=== PATIENT | female | born 2000 | race African-American/Black ===

== ENCOUNTER 2022-07-05 12:38 | Emergency (ER) | payer MEDICAID, OTHER ==
[~2022-07-05] VITALS: Ht 152.4 cm; Wt 68.0 kg
[2022-07-05] MEDS ORDERED: MAGNESIUM/ALUMINUM HYDROXIDE/SIMETHICONE 30ML UDC PO STA (13:12)
[2022-07-05] MEDS ORDERED: ONDANSETRON 4MG ODT PO STA (13:12)
[2022-07-05] MEDS ORDERED: VISCOUS LIDOCAINE 2% 15 ML UDC PO STA (13:12)
[2022-07-05] MEDS ORDERED: FAMOTIDINE 20MG TABLET PO ONE (13:15)
[2022-07-05] MEDS ORDERED: ACETAMINOPHEN 325MG TABLET PO ONE (13:15)
[2022-07-05] MEDS ORDERED: DIPHENHYDRAMINE 50MG/ML VIAL IV ONE (13:45)
[2022-07-05] MEDS ORDERED: ONDANSETRON HCL 4MG/2ML INJ IV ONE (13:45)
[2022-07-05] MEDS ORDERED: HALOPERIDOL LACTATE 5MG/ML VIAL IM ONE (13:45)
[2022-07-05] MEDS ORDERED: FAMOTIDINE 20MG/2ML VIAL IV ONE (13:45)
[2022-07-05 14:50] LABS: BASOPHILS % 1.2 % (0.0-2.0); HEMATOCRIT. 41.5 % (36.0-48.0); HEMOGLOBIN. 13.8 g/dL (12.0-16.0); LYMPHOCYTES % 25.9 % (20.0-50.0); MEAN CORPUSCULAR HEMOGLOBIN 29.7 pg (28.0-32.0); MEAN CORPUSCULAR VOLUME 89.2 fL (81.0-99.0); MEAN PLATELET VOLUME 9.6 fl (7.4-10.4); NEUTROPHILS % 62.9 % (40.0-76.0); PLATELET 255 x1000/uL (130-400); RED BLOOD CELL COUNT 4.66 mill/uL (4.2-5.4); RED CELL DISTRIBUTION WIDTH 13.5 % (11.6-14.6)
[2022-07-05 14:58] LABS: CHLORIDE 105 mEq/L (98-107)
[2022-07-05] MEDS ORDERED: POTASSIUM CHLORIDE 20MEQ/PACKET PO ONE (15:30)
[2022-07-05] MEDS ORDERED: MAGNESIUM OXIDE 400MG TABLET PO SCH (15:30)
[2022-07-05 16:29] LABS: HCG SCREEN NEGATIVE
[2022-07-05] MEDS ORDERED: MAG-55 MT (17:47)
[2022-07-05] MEDS ORDERED: FAMO40TA70 MT (17:47)
[2022-07-05 18:23] VITALS: BP 121/81
== END 2022-07-05 18:24 | disposition home or self-care (01) ==
LOC: ER 12:38
DX: K29.20 Alcoholic gastritis without bleeding (principal); F10.10 Alcohol abuse, uncomplicated; Y90.9 Presence of alcohol in blood, level not specified
CPT/HCPCS: 36415; 80053; 83690; 84703; 85025; 96372; 96374; 96375; 99284; J1200; J1630; J2405; J3490

== ENCOUNTER 2022-09-26 15:15 | Emergency (ER) | payer MEDICAID ==
[~2022-09-26] VITALS: Ht 162.6 cm; Wt 50.0 kg
[~2022-09-26 15:15] MED LIST: FAMO40TA70 MT; MAG-55 MT
[2022-09-26] MEDS ORDERED: BACITRACIN ZINC OINT UDPKT TOP ONE (16:00)
[2022-09-26] MEDS ORDERED: LIDOCAINE HCL/PF 1% 10 MG/ML 5ML VIAL INFIL ONE (16:00)
[2022-09-26] MEDS ORDERED: ACETAMINOPHEN 325MG TABLET PO ONE (16:00)
[2022-09-26] MEDS ORDERED: BO1 TP (17:35)
[2022-09-26] MEDS ORDERED: IBUPROFEN 400MG TABLET PO ONE (18:15)
[2022-09-26 18:16] VITALS: BP 129/89
== END 2022-09-26 18:46 | disposition home or self-care (01) ==
LOC: ER 15:18
DX: S61.511A Laceration without foreign body of right wrist, initial encounter (principal); Z96.659 Presence of unspecified artificial knee joint; W26.0XXA Contact with knife, initial encounter; Y93.89 Activity, other specified; Y92.010 Kitchen of single-family (private) house as the place of occurrence of the external cause
CPT/HCPCS: 12002; 99284; J3490

== ENCOUNTER 2022-12-07 23:43 | Emergency (ER) | payer MEDICAID, OTHER ==
[~2022-12-07] VITALS: Ht 162.6 cm; Wt 54.0 kg
[~2022-12-07 23:43] MED LIST changes: +BO1 TP
[2022-12-07] MEDS ORDERED: MAGNESIUM/ALUMINUM HYDROXIDE/SIMETHICONE 30ML UDC PO STA (23:49)
[2022-12-07] MEDS ORDERED: ONDANSETRON HCL 4MG/2ML INJ IV STA (23:49)
[2022-12-07] MEDS ORDERED: VISCOUS LIDOCAINE 2% 15 ML UDC PO STA (23:49)
[2022-12-08] MEDS ORDERED: SODIUM CHLORIDE 0.9% 1,000 ML IV ONE
[2022-12-08 00:33] LABS: HEMATOCRIT. 41.3 % (36.0-48.0); HEMOGLOBIN. 13.9 g/dL (12.0-16.0); MEAN CORPUSCULAR HEMOGLOBIN 29.4 pg (28.0-32.0); MEAN CORPUSCULAR VOLUME 87.4 fL (81.0-99.0); MEAN PLATELET VOLUME 8.9 fl (7.4-10.4); PLATELET 214 x1000/uL (130-400); RED BLOOD CELL COUNT 4.73 mill/uL (4.2-5.4); RED CELL DISTRIBUTION WIDTH 13.2 % (11.6-14.6)
[2022-12-08 00:40] LABS: CHLORIDE 104 mEq/L (98-107)
[2022-12-08 00:46] LABS: HCG SCREEN NEGATIVE
[2022-12-08 00:48] LABS: ETHANOL BLOOD < 10 mg/dL; PHOSPHORUS 1.5 mg/dL (2.5-4.9)
[2022-12-08] MEDS ORDERED: MAGNESIUM 2 G PREMIX 50 ML IV NR (01:00)
[2022-12-08 01:36] LABS: PROTHROMBIN TIME 11.2 sec (9.6-11.0)
[2022-12-08] MEDS ORDERED: MAGN100T6 MT (01:40)
[2022-12-08] MEDS ORDERED: ONDA4TAB50 MT (01:40)
[2022-12-08] MEDS ORDERED: PHOS250T5 MT (01:40)
[2022-12-08] MEDS ORDERED: LORAZEPAM 2MG/ML CPJ IM ONE (01:45)
[2022-12-08] MEDS ORDERED: HALOPERIDOL LACTATE 5MG/ML VIAL IM ONE ×2 (01:45)
[2022-12-08] MEDS ORDERED: POTASSIUM PHOS,M-BASIC-D-BASIC 30 MMOL in DEXT 5% WATER 500 ML IV NR (02:00)
[2022-12-08 02:12] LABS: PLATELET ESTIMATE NORMAL
[2022-12-08 04:00] VITALS: BP 127/70
== END 2022-12-08 05:20 | disposition home or self-care (01) ==
LOC: ER 23:43
DX: E83.42 Hypomagnesemia (principal); E87.8 Other disorders of electrolyte and fluid balance, not elsewhere classified; R11.10 Vomiting, unspecified; Z79.899 Other long term (current) drug therapy; Z13.9 Encounter for screening, unspecified
CPT/HCPCS: 36415; 76705; 80053; 80320; 82962; 83690; 83735; 84100; 84703; 85025; 85610; 96361; 96365; 96367; 96372; 96375; 99285; J1630; J2060; J2405; J3475; J3490; J7030; J7060; Z7610; 80305; G0480

== ENCOUNTER 2022-12-09 09:25 | Emergency (ER) | payer MEDICAID, OTHER ==
[~2022-12-09] VITALS: Ht 154.9 cm; Wt 54.0 kg
[~2022-12-09 09:25] MED LIST changes: +MAGN100T6 MT; +ONDA4TAB50 MT; +PHOS250T5 MT
[2022-12-09] MEDS ORDERED: ONDANSETRON HCL 4MG/2ML INJ IV NR ×3 (10:30→13:00)
[2022-12-09] MEDS ORDERED: HALOPERIDOL LACTATE 5MG/ML VIAL IM NR (10:30)
[2022-12-09 11:06] LABS: BASOPHILS % 0.6 % (0.0-2.0); HEMATOCRIT. 43.5 % (36.0-48.0); HEMOGLOBIN. 14.7 g/dL (12.0-16.0); LYMPHOCYTES % 11.4 % (20.0-50.0); MEAN CORPUSCULAR HEMOGLOBIN 29.9 pg (28.0-32.0); MEAN CORPUSCULAR VOLUME 88.3 fL (81.0-99.0); MEAN PLATELET VOLUME 8.9 fl (7.4-10.4); MONOCYTES % 7.2 % (2.0-8.0); NEUTROPHILS % 80.8 % (40.0-76.0); PLATELET 199 x1000/uL (130-400); RED BLOOD CELL COUNT 4.92 mill/uL (4.2-5.4); RED CELL DISTRIBUTION WIDTH 13.3 % (11.6-14.6)
[2022-12-09 11:18] LABS: CHLORIDE 104 mEq/L (98-107)
[2022-12-09 11:26] LABS: HCG SCREEN NEGATIVE
[2022-12-09 11:43] LABS: CLARITY URINE CLEAR (CLEAR); COLOR URINE YELLOW (YELLOW); KETONES URINE 4+ (NEGATIVE); LEUKOCYTE ESTERASE URINE NEGATIVE (NEGATIVE); NITRITE URINE NEGATIVE (NEGATIVE); OCCULT BLOOD URINE 2+ (NEGATIVE); PROTEIN URINE 1+ (NEGATIVE); SPECIFIC GRAVITY URINE 1.032 (1.005-1.030); UROBILINOGEN URINE 0.2 E.U./dL (0.2-1.0)
[2022-12-09] MEDS ORDERED: IOHEXOL-300 100 ML BOTTLE ONE (13:59)
[2022-12-09 14:23] VITALS: BP 112/66
== END 2022-12-09 14:29 | disposition admitted as inpatient to this hospital (09) ==
LOC: ER 09:38 → EDBEDREQ 12:44 → 6EST 13:24 → UNDOADMIN 13:24 → EDBEDREQ 13:53 → ENRESERV 14:47 → 6EST 15:33 → UNDODISIN 16:32
DX: R11.2 Nausea with vomiting, unspecified (principal); F12.10 Cannabis abuse, uncomplicated; Z53.29 Procedure and treatment not carried out because of patient's decision for other reasons; Z79.899 Other long term (current) drug therapy
CPT/HCPCS: 36415; 74177; 80053; 81003; 81025; 83690; 83735; 84703; 85025; 93005; 96372; 96374; 96376; 99285; J1630; J2405; Q9967; Z7610

== ENCOUNTER 2022-12-13 12:44 | Emergency (ER) | payer MEDICAID, OTHER ==
[~2022-12-13] VITALS: Ht 160 cm; Wt 50.0 kg
[2022-12-13] MEDS ORDERED: SODIUM CHLORIDE 0.9% 1,000 ML IV ONE (13:30)
[2022-12-13] MEDS ORDERED: ONDANSETRON HCL 4MG/2ML INJ IV ONE (13:30)
[2022-12-13] MEDS ORDERED: HALOPERIDOL LACTATE 5MG/ML VIAL IM ONE (13:30)
[2022-12-13] MEDS ORDERED: KETOROLAC 15MG/ML VIAL IV ONE (13:30)
[2022-12-13 13:41] LABS: EOSINOPHILS % 1.7 % (0.0-5.0); HEMATOCRIT. 40.4 % (36.0-48.0); HEMOGLOBIN. 13.5 g/dL (12.0-16.0); LYMPHOCYTES % 22.5 % (20.0-50.0); MEAN CORPUSCULAR HEMOGLOBIN 29.6 pg (28.0-32.0); MEAN CORPUSCULAR VOLUME 88.7 fL (81.0-99.0); MEAN PLATELET VOLUME 8.7 fl (7.4-10.4); NEUTROPHILS % 68.8 % (40.0-76.0); PLATELET 219 x1000/uL (130-400); RED BLOOD CELL COUNT 4.55 mill/uL (4.2-5.4); RED CELL DISTRIBUTION WIDTH 13.3 % (11.6-14.6)
[2022-12-13 13:53] LABS: CHLORIDE 110 mEq/L (98-107)
[2022-12-13 14:11] LABS: HCG SCREEN NEGATIVE
[2022-12-13] MEDS ORDERED: HALOPERIDOL LACTATE 5MG/ML VIAL IM NR (15:45)
[2022-12-13] MEDS ORDERED: KETOROLAC 15MG/ML VIAL IV NR (15:45)
[2022-12-13] MEDS ORDERED: ONDANSETRON HCL 4MG/2ML INJ IV NR (15:45)
[2022-12-13] MEDS ORDERED: METOCLOPRAMIDE HCL 10MG/2ML VIAL IV ONE (17:00)
[2022-12-13] MEDS ORDERED: FAMOTIDINE 20MG/2ML VIAL IV ONE (17:00)
[2022-12-13] MEDS ORDERED: MAG-55 MT (17:22)
[2022-12-13 17:52] VITALS: BP 120/88
== END 2022-12-13 17:50 | disposition home or self-care (01) ==
LOC: ER 12:44
DX: R10.9 Unspecified abdominal pain (principal); F12.10 Cannabis abuse, uncomplicated
CPT/HCPCS: 36415; 80053; 83690; 84703; 85025; 96361; 96372; 96374; 96375; 99284; J1630; J1885; J2405; J2765; J3490; J7030; Z7610